=== PATIENT | female | born 1955 | race Hispanic/Latino ===

== ENCOUNTER → 2022-07-04 | Outpatient (CLI) | payer BC | END | disposition home or self-care (01) | LOC: RAH 15:49 | PROVIDERS: ATTEND Nurse Practitioner Family | DX: Z12.31 Encounter for screening mammogram for malignant neoplasm of breast (principal) | CPT/HCPCS: 77067 ==

== ENCOUNTER → 2023-07-13 | Outpatient (CLI) | payer BC | END | disposition home or self-care (01) | LOC: RAH 10:21 | PROVIDERS: ATTEND Nurse Practitioner Family | DX: Z12.31 Encounter for screening mammogram for malignant neoplasm of breast (principal) | CPT/HCPCS: 77067 ==

== ENCOUNTER → 2024-10-11 | Outpatient (CLI) | payer BC ==
[2024-10-11 21:37] VITALS: PULSE 64; RESP 18
[2024-10-11 22:00] VITALS: PULSE 64; RESP 16
[2024-10-11 22:30] VITALS: PULSE 64; RESP 18
[2024-10-11 23:00] VITALS: PULSE 64; RESP 16
[2024-10-11 23:30] VITALS: PULSE 64; RESP 16
[2024-10-12] VITALS (10 sets, daily range): PULSE 58–64; RESP 14–18
== END | disposition home or self-care (01) ==
LOC: SLP 20:17
PROVIDERS: ATTEND Nurse Practitioner Family
DX: G47.33 Obstructive sleep apnea (adult) (pediatric) (principal); G47.10 Hypersomnia, unspecified
CPT/HCPCS: 95810

== ENCOUNTER → 2025-06-19 | Outpatient (CLI) | payer BC | END | disposition home or self-care (01) | LOC: RAH 10:53 | PROVIDERS: ATTEND Nurse Practitioner Family | DX: Z12.31 Encounter for screening mammogram for malignant neoplasm of breast (principal) | CPT/HCPCS: 77067 ==